=== PATIENT | male | born 1970 | race Caucasian/White ===

== ENCOUNTER 2016-11-25 17:19 | Observation (INO) ==
--- NOTE | 2016-11-25 17:40 | Emergency Department Note ---
Disposition Clinical Impression: Tachycardia Chest pain Qualifiers: Chest pain type: unspecified Qualified Code(s): R07.9 - Chest pain, unspecified Disposition: Admitted As Inpatient Condition: Fair Referrals: NONE,PCP [Non-Partnered Physician] - Forms: ED Satisfaction Letter Chest Pain HPI - General Chief Complaint: ED Chest Pain Stated Complaint: chest pain Time Seen by Provider: 11/25/16 17:22 Source: patient, EMS Limitations: no limitations Vital Signs Reviewed: Yes Nursing Notes Reviewed: Yes - History of Present Illness HPI Narrative: Presents with chest pain which is both a tightness and dull and sharp and has been intermittent for the last 3 or 4 days lasts between 2 minutes and 10 minutes at a time and it is nonexertional. He does have associated diaphoresis and dyspnea. The patient did present per EMS. He denies radiation to back does have radiation to left shoulder, left neck and jaw. He does occasionally have a pleuritic aspect but this is not present with every breath. He denies any pain or swelling of the lower extremities but does have some numbness of both feet. Social history: Smoker, no alcohol or drugs. He has used heroin in the past but not in the last 4 years. Family history: Positive for heart disease in both parents Severity scale (1-10): 6 - Related Data Home Medications Medication Instructions Recorded Confirmed Cyclobenzaprine [Flexeril] 10 mg PO TID PRN 05/25/15 06/28/16 Gabapentin [Neurontin] 800 mg PO TID 05/25/15 06/28/16 Omeprazole [PriLOSEC] 20 mg PO BIDAC 05/25/15 06/28/16 Sennosides [Senna] 8.6 mg PO QPM PRN 05/25/15 06/28/16 Naproxen Sodium [Aleve] 220 mg PO BID PRN 01/11/16 06/28/16 Previous Rx's Medication Instructions Recorded Clindamycin [Cleocin] 150 mg PO Q6HR #7 capsule 06/28/16 HYDROcodone/Acet 5/325 mg [Burley 1 tab PO Q6H PRN #20 tab 06/28/16 5-325 mg] Juan/Poly/HC *EAR* SOLN 4 drop RIGHT EAR QID 10 Days 08/04/16 [Cortisporin *EAR* SOLN] Allergies Allergy/AdvReac Type Severity Reaction Status Date / Time No Known Allergies Allergy Verified 06/28/16 07:02 Review of Systems: Constitutional: No fever Vision: No blurred vision ENT: No rhinorrhea Respiratory: No cough Allergic: No allergies : No blood in urine GI: No blood in stool Hematologic: No bruising Dermatologic: No skin rash Musculoskeletal: No pain in the extremities Neuro: Does have some numbness of both feet Chest Pain PMH - Past Medical History Medical history: Reports: GERD Surgical history: Reports: cholecystectomy Psychiatric history: Reports: no psych history - Social History Smoking Status: Current every day smoker Alcohol use: Reports: none Drug use: Reports: none Physical Exam CONSTITUTIONAL: Well-appearing; well-nourished; A&O X 3, in no apparent distress HEAD: Normocephalic; atraumatic EYES: PERRL, no scleral icterus NOSE: The nose is normal in appearance without rhinorrhea NECK: No JVD or distended neck veins RESP: Normal chest excursion with respiration; breath sounds clear and equal bilaterally; no wheezes, rhonchi, or rales CARD: Regular rhythm, without murmurs, rub or gallop ABD: Non-distended; non-tender, soft, without rigidity, rebound or guarding,no pulsatile mass CHEST: No pain with palpation SKIN: Normal for age and race; warm and dry without diaphoresis ; no apparent lesions EXTREMITIES: Pulses are 2 plus and equal times 4 extremities, no peripheral edema or calf muscle pain - General Limitations: no limitations General appearance: alert, in no apparent distress Course Vital Signs Temperature 98.9 F 11/25/16 17:20 Pulse Rate 125 11/25/16 17:20 Respiratory Rate 18 11/25/16 17:20 Blood Pressure 121/87 11/25/16 17:20 O2 Sat by Pulse Oximetry 94 11/25/16 17:20 Temperature 98.9 F 11/25/16 17:20 Pulse Rate 102 11/25/16 18:30 Respiratory Rate 18 11/25/16 18:30 Blood Pressure 131/92 11/25/16 18:30 O2 Sat by Pulse Oximetry 100 11/25/16 18:30 Oxygen Delivery Oxygen Delivery Nasal Cannula Chest Pain - MDM Narrative Medical decision making narrative: The patient is tachycardic. I did review previous records showing a knee scope was done in June. The patient's EKG shows sinus tachycardia with rate of 126 bpm and evidence of possible old inferior [place]. There are currently some nonspecific ST changes. Patient will have labs including troponin, d-dimer, other labs, IV fluid bolus, chest x-ray and will likely be admitted to the hospital. 174 I did review the patient's test results and the troponin is negative, d-dimer is negative. The patient's heart rate has significantly improved and is now 102 with IV fluids. Chest x-ray without acute abnormality. There is no radiation to the back of the risk of aortic dissection is unlikely. I did add on a urine drug tox screens. Based on the patient's age and his intermittent symptoms the troponin will not be completely reliable as the patient's total and maximal duration of pain is 10 minutes at a time the patient will be admitted to the hospital. 1850 I did speak with the patient again and he is comfortable with the admission plan. patient is being monitored. I did speak with Dr. Jones who is the hospitalist who except the patient for admission. 2012 - Medical Records Medical records reviewed: Yes I reviewed the patient's medical records. - Lab Data Lab results reviewed: Yes I reviewed the patient's lab results. Result diagrams: 11/25/16 18:12 11/25/16 18:12 Lab Results 11/25/16 11/25/16 11/25/16 Range/Units 18:12 18:12 18:12 WBC 7.3 (4.3-11.1) K/mcL RBC 5.14 (4.19-5.50) M/mcL Hgb 15.1 (12.9-16.9) g/dL Hct 44.8 (37.5-50.1) % MCV 87.2 (83.0-100.0) fL MCH 29.4 (28.0-33.3) pg MCHC 33.7 (31.6-35.5) g/dL RDW 12.0 (11.5-14.5) % Plt Count 230 (140-400) K/mcL MPV 11.1 (9.4-12.4) fL Immature Gran % 0.3 (0-4) % Seg Neutrophils % 63.6 % Lymphocytes % 26.7 % Monocytes % 7.0 % Eosinophils % 1.2 % Basophils % 1.2 % Neutrophils # 4.6 (1.6-8.9) K/mcL Lymphocytes # 2.0 (0.6-4.6) K/mcL Monocytes # 0.5 (0.0-1.3) K/mcL Eosinophils # 0.1 (0.0-0.6) K/mcL Basophils # 0.1 (0.0-0.2) K/mcL D-Dimer (0-500) ng/mLFEU Sodium 138 (136-145) mEq/L Potassium 4.2 (3.5-4.5) mEq/L Chloride 102 (98-109) mEq/L Carbon Dioxide 26 (19-29) mEq/L BUN 12 (8-26) mg/dL Creatinine 0.92 (0.72-1.25) mg/dL Est GFR ( Amer) > 60 (> 60) Est GFR (Non-Af Amer) > 60 (> 60) BUN/Creatinine Ratio 13 (6-26) Glucose 107 H (70-99) mg/dL Calculated Osmolality 286 (280-300) Calcium 9.8 (8.6-10.8) mg/dL Troponin I 0.01 (0-0.03) ng/mL 11/25/16 Range/Units 18:12 WBC (4.3-11.1) K/mcL RBC (4.19-5.50) M/mcL Hgb (12.9-16.9) g/dL Hct (37.5-50.1) % MCV (83.0-100.0) fL MCH (28.0-33.3) pg MCHC (31.6-35.5) g/dL RDW (11.5-14.5) % Plt Count (140-400) K/mcL MPV (9.4-12.4) fL Immature Gran % (0-4) % Seg Neutrophils % % Lymphocytes % % Monocytes % % Eosinophils % % Basophils % % Neutrophils # (1.6-8.9) K/mcL Lymphocytes # (0.6-4.6) K/mcL Monocytes # (0.0-1.3) K/mcL Eosinophils # (0.0-0.6) K/mcL Basophils # (0.0-0.2) K/mcL D-Dimer < 215 (0-500) ng/mLFEU Sodium (136-145) mEq/L Potassium (3.5-4.5) mEq/L Chloride (98-109) mEq/L Carbon Dioxide (19-29) mEq/L BUN (8-26) mg/dL Creatinine (0.72-1.25) mg/dL Est GFR ( Amer) (> 60) Est GFR (Non-Af Amer) (> 60) BUN/Creatinine Ratio (6-26) Glucose (70-99) mg/dL Calculated Osmolality (280-300) Calcium (8.6-10.8) mg/dL Troponin I (0-0.03) ng/mL - Radiology Data Radiology results reviewed: Yes I reviewed the patient's radiology results.
[2016-11-25] MEDS: 0.9 % Sodium Chloride 1,000 ML IVC SCH ×2 (17:51→17:52)
[2016-11-25 18:27] LABS: Basophils # 0.1 K/mcL (0.0-0.2); Basophils % 1.2 %; Eosinophils # 0.1 K/mcL (0.0-0.6); Eosinophils % 1.2 %; Hematocrit 44.8 % (37.5-50.1); Hemoglobin 15.1 g/dL (12.9-16.9); Immature Granulocytes % 0.3 % (0-4); Lymphocytes % 26.7 %; Mean Corpuscular HGB Conc 33.7 g/dL (31.6-35.5); Mean Corpuscular Hemoglobin 29.4 pg (28.0-33.3); Mean Corpuscular Volume 87.2 fL (83.0-100.0); Mean Platelet Volume 11.1 fL (9.4-12.4); Monocytes # 0.5 K/mcL (0.0-1.3); Neutrophils # 4.6 K/mcL (1.6-8.9); Platelet Count 230 K/mcL (140-400); Red Blood Count 5.14 M/mcL (4.19-5.50); Segmented Neutrophils % 63.6 %
[2016-11-25 18:39] LABS: BUN/Creatinine Ratio 13 (6-26); Blood Urea Nitrogen 12 mg/dL (8-26); Calcium 9.8 mg/dL (8.6-10.8); Carbon Dioxide 26 mEq/L (19-29); Chloride 102 mEq/L (98-109); Glucose 107 mg/dL (70-99); Osmolality,Calculated 286 (280-300); Potassium 4.2 mEq/L (3.5-4.5); Sodium 138 mEq/L (136-145); eGFR For African Americans > 60 (> 60); eGFR For Non-African Americans > 60 (> 60)
[2016-11-25] MEDS ORDERED: Naloxone 0.4 MG/ML INJ IVP PRN (22:30)
[2016-11-25] MEDS ORDERED: *HR* HYDROcodone/Acet 7.5/325 mg TABLET PO PRN (22:32)
[2016-11-25] MEDS ORDERED: Sennosides 8.6 MG TABLET PO PRN (22:32)
[2016-11-26] MEDS: 0.9 % Sodium Chloride 1,000 ML IVC SCH ×4 (00:29→00:32)
[2016-11-26] MEDS: Acetaminophen 325 MG TABLET PO PRN (01:10)
--- NOTE | 2016-11-26 05:04 | Internal Med History&Physical ---
Date of Encounter: 11/25/16 Time of Encounter: 23:00 Assessment and Plan (1) Tobacco abuse Current visit: Yes Status: Acute Smoking cessation education. Placed patient on nicotine patch (2) Numbness and tingling of both feet Current visit: Yes Status: Acute Symptoms have lasted for several weeks. Patient has history of radiculopathy S/ P back surgery. We will repeat CT L-spine in a.m. (3) Chest pain Current visit: Yes Status: Acute Etiology is undetermined. Need to rule out ACS as patient has a history of hypertension and smoking. - Place patient on continuous cardiac monitoring. - 3 sets of troponin. - Echocardiogram. - Stress test in a.m. Qualifiers: Chest pain type: precordial pain Qualified Code(s): R07.2 - Precordial pain Internal Medicine - H&P: HPI Chief complaint: Chest pain Admitted From: Home Plans for Post Hospital Care: Home History of present illness: Mr. Bowers is a 46 year old male with history of hypertension, GERD, back pain S /P back surgery present to emergency room for chest pain. Pain started at 3 PM. Located on the left chest, radiating to left shoulder and arm and neck. Pain is intermittent and lasted about 10-15 minutes, sharp and squeezing, 6-7 out of 10. Patient denies nausea, shortness of breath, or diaphoresis. Patient takes nitroglycerin but does not help. Patient also complaining both feet numbness/tingling for several weeks. Denies urinary/fecal incontinence. Past Med Surg Social Fam HX - Past Medical History Medical history: GERD Psychiatric history: no psych history - Past Surgical History Surgical History: cholecystectomy - Social History Smoking Status: Current every day smoker Smokeless Tobacco Status: No Alcohol use: none Drug use: none - Family History Father Hx Family Cardiac Disorders: Yes (DE) Internal Medicine - H&P: Meds Cyclobenzaprine [Flexeril] 10 mg PO TID PRN 05/25/15 [History] Gabapentin [Neurontin] 800 mg PO TID 05/25/15 [History] Omeprazole [PriLOSEC] 20 mg PO BIDAC 05/25/15 [History] Sennosides [Senna] 8.6 mg PO QPM PRN 05/25/15 [History] Naproxen Sodium [Aleve] 220 mg PO BID PRN 01/11/16 [History] Docusate [Colace] 100 mg PO DAILY 11/25/16 [History] HYDROcodone/Acet 7.5/325 mg [Garner 7.5-325 mg] 1 tab PO TID PRN 11/25/16 [ History] 3 Allergy/AdvReac Type Severity Reaction Status Date / Time No Known Allergies Allergy Verified 06/28/16 07:02 All Systems PM: A 10-system review of systems was performed and is negative for pertinent findings except as documented above in the HPI. - Constitutional Vitals: Temp Pulse Resp BP Pulse Ox 98.4 F 67 20 110/73 95 11/26/16 02:46 11/26/16 02:46 11/26/16 02:46 11/26/16 02:46 11/26/16 02:46 General appearance: Present: A&O X 3, no acute distress, answers questions appropriately - Head Head exam: Present: atraumatic, normocephalic - Eye Eye exam: Present: PERRL, conjuntiva pink, sclera anicteric Pupils: Present: PERRL - Neck Neck exam general surgery: Present: supple, trachea midline. Absent: lymphadenopathy - Respiratory Respiratory exam: Present: CTAB. Absent: accessory muscle use, rales, rhonchi, wheezes - Cardiovascular Cardiovascular exam: Present: RRR, +S1, +S2. Absent: diastolic murmur, gallop, rubs, systolic murmur - GI/Abdominal GI/Abdominal exam: Present: normal bowel sounds, soft, no peritoneal signs. Absent: distended, tenderness - Extremities Exam Extremities exam: Present: warm, radial pulses palpable and symmetrical. Absent : calf tenderness, cyanotic, pedal edema - Neurological Exam Neurological exam: Present: CN II-XII intact, oriented X3, no focal deficits. Absent: pronater drift, facial droop, speech deficit - Skin Skin exam: Present: dry, intact Internal Med - H&P Results - Labs CBC & Chem 7: 11/25/16 18:12 11/25/16 18:12 Labs: Cardiac Enzymes 11/25/16 Range/Units 22:42 Troponin I 0.01 (0-0.03) ng/mL - EKG Data -: EKG Interpreted by Myself EKG shows normal: sinus rhythm Rate: normal - Impressions ITS Impressions Lumbar Spine CT 11/25/16 22:35 IMPRESSION: 1. Postoperative changes at L5-S1. 2. Broad disc bulge at L2-3 with mild central canal stenosis. MRI is more sensitive for disc pathology. D/ / Jorge Shaw MD / Jorge Shaw MD Interpreting Provider: Jorge Shaw MD
[2016-11-26] MEDS ORDERED: Regadenoson 0.4 MG/5 ML SYRINGE IVP ONE (06:15)
[2016-11-26 06:30] LABS: Basophils # 0.1 K/mcL (0.0-0.2); Basophils % 1.3 %; Eosinophils # 0.3 K/mcL (0.0-0.6); Hematocrit 42.3 % (37.5-50.1); Hemoglobin 14.2 g/dL (12.9-16.9); Immature Granulocytes % 0.3 % (0-4); Lymphocytes # 2.6 K/mcL (0.6-4.6); Lymphocytes % 38.3 %; Mean Corpuscular HGB Conc 33.6 g/dL (31.6-35.5); Mean Corpuscular Hemoglobin 29.6 pg (28.0-33.3); Mean Corpuscular Volume 88.1 fL (83.0-100.0); Mean Platelet Volume 11.4 fL (9.4-12.4); Monocytes # 0.6 K/mcL (0.0-1.3); Monocytes % 8.2 %; Neutrophils # 3.3 K/mcL (1.6-8.9); Platelet Count 205 K/mcL (140-400); Red Cell Distribution Width 12.1 % (11.5-14.5); Segmented Neutrophils % 47.9 %
[2016-11-26 06:44] LABS: BUN/Creatinine Ratio 14 (6-26); Blood Urea Nitrogen 12 mg/dL (8-26); Calcium 9.4 mg/dL (8.6-10.8); Carbon Dioxide 26 mEq/L (19-29); Chloride 103 mEq/L (98-109); Glucose 111 mg/dL (70-99); Osmolality,Calculated 290 (280-300); Potassium 3.5 mEq/L (3.5-4.5); Sodium 140 mEq/L (136-145); eGFR For African Americans > 60 (> 60); eGFR For Non-African Americans > 60 (> 60)
[2016-11-26] MEDS: Nicotine 21 MG PATCH.TD24 TD SCH (12:48)
[2016-11-26] MEDS: Gabapentin 400 MG CAPSULE PO SCH ×3 (12:49→22:33)
--- NOTE | 2016-11-26 13:06 | Internal Med Progress Note ---
Date of Encounter: 11/26/16 Time of Encounter: 12:15 - Assessment and plan (1) Chest pain Current Visit: Yes Status: Acute Assessment and plan: Patient currently complains of chest pain though states it is slightly better than when he arrived. Chest x-ray negative. Echocardiogram unremarkable with ejection fraction of 60-65% and mild diastolic dysfunction. Patient is euvolemic on examination and denies shortness of breath above his norm. Stress test will be tomorrow given that he had caffeine this morning. Nothing by mouth after midnight. Home pain medication has been scheduled with breakthrough pain medication ordered at this time. Troponins negative 3, awaiting stress test tomorrow morning. ITS Impressions Chest X-Ray 11/25/16 17:30 IMPRESSION: No acute abnormality. D/ / Jorge Shaw MD / Jorge Shaw MD Interpreting Provider: Jorge Shaw MD Echocardiogram Date of Study: 11/26/2016 Indications: Chest pain Impressions: LVEF 60-65%. Normal LV chamber size, wall thickness and function. Mild left ventricular diastolic dysfunction. Normal right ventricular structure and function. No evidence of pulmonary hypertension. No significant valvular dysfunction. (2) History of spinal surgery Current Visit: Yes Status: Chronic Assessment and plan: Patient has had 2 spinal surgeries one in 2004, the other one in 2007. (3) Numbness and tingling of both feet Current Visit: Yes Status: Acute Assessment and plan: Patient stating he has been having worsening numbness and tingling in his feet for the past one to one and a half months. His spinal surgeries were many years ago. He is also having urinary hesitancy with difficulty initiating a stream. Lumbar CT revealing bulging disc at L2-L3 with mild canal stenosis. Given his new symptoms, MRI of lumbar spine has been ordered and is pending. We will consider consultation to spinal surgery if indicated. On examination, strength 5 over 5 bilaterally. Sensation to light touch is affected. Capillary refill brisk and pulses strong. ITS Impressions Lumbar Spine CT 11/25/16 22:35 IMPRESSION: 1. Postoperative changes at L5-S1. 2. Broad disc bulge at L2-3 with mild central canal stenosis. MRI is more sensitive for disc pathology. D/ / 11/26/2016 07:14:51 Jorge Shaw MD / [place] Interpreting Provider: Jorge Shaw MD (4) Urinary hesitancy Current Visit: Yes Status: Acute Assessment and plan: Has been present for the last month or so. Patient and states that he can take up to 10-15 minutes to start his stream. Lumbar spine MRI pending. Will obtain urinalysis. No prior history of BPH. (5) Chronic back pain Current Visit: Yes Status: Chronic Assessment and plan: Home pain medications continued with breakthrough pain medicine as needed (6) Tachycardia Current Visit: Yes Status: Resolved (7) Tobacco abuse Current Visit: Yes Status: Chronic Assessment and plan: Declines counseling. Nicotine patch ordered-remove prior to stress test per protocol (8) DVT prophylaxis Current Visit: Yes Status: Acute Assessment and plan: Observation patient. Up ad bj. - Subjective Interval history: Patient seen and examined. On examination, patient sitting upright in bed conversing with his and friend. Patient still complaining of chest pain to his left anterior chest radiating to his left shoulder. He denies shortness of breath above his norm. Patient is requesting that his pain medication be increased. - Constitutional Vitals: Temp Pulse Resp BP Pulse Ox 97.8 F 72 16 107/70 97 11/26/16 11:36 11/26/16 11:36 11/26/16 11:36 11/26/16 11:36 11/26/16 11:36 General appearance: Present: A&O X 3, no acute distress, answers questions appropriately - Head Head exam: Present: atraumatic, normocephalic - Eye Eye exam: Present: PERRL, conjuntiva pink, sclera anicteric Pupils: Present: PERRL - Neck Neck exam general surgery: Present: supple, trachea midline. Absent: lymphadenopathy - Respiratory Respiratory exam: Present: decreased breath sounds. Absent: accessory muscle use, rales, respiratory distress, rhonchi, wheezes - Cardiovascular Cardiovascular exam: Present: RRR, +S1, +S2. Absent: diastolic murmur, gallop, rubs, systolic murmur - GI/Abdominal GI/Abdominal exam: Present: normal bowel sounds, soft, no peritoneal signs. Absent: distended, tenderness - Extremities Exam Extremities exam: Present: warm, radial pulses palpable and symmetrical. Absent : calf tenderness, cyanotic, pedal edema - Expanded Lower Extremities Exam Lower Leg exam: Present: normal inspection Ankle exam: Present: normal inspection Foot/Toe exam: Present: normal inspection Neuro vascular tendon exam: Present: decreased fine/light touch, no vascular compromise. Absent: abnormal cap refill, extremity cold to touch, pallor, pulse deficit - Neurological Exam Neurological exam: Present: alert, CN II-XII intact, normal gait, oriented X3, no focal deficits, strengths equal and symetr throughout. Absent: pronater drift, facial droop, speech deficit - Skin Skin exam: Present: dry, intact, normal color, warm Internal Medicine: Result - Labs CBC & Chem 7: 11/26/16 05:51 11/26/16 05:51 Labs: Short CBC 11/26/16 Range/Units 05:51 WBC 6.8 (4.3-11.1) K/mcL Hgb 14.2 (12.9-16.9) g/dL Hct 42.3 (37.5-50.1) % Plt Count 205 (140-400) K/mcL Neutrophils # 3.3 (1.6-8.9) K/mcL BMP 11/26/16 05:51 Sodium 140 Potassium 3.5 Chloride 103 Carbon Dioxide 26 BUN 12 Creatinine 0.83 Glucose 111 H Calcium 9.4 Cardiac Enzymes 11/25/16 11/26/16 Range/Units 22:42 05:51 Troponin I 0.01 0.00 (0-0.03) ng/mL - ABG Interpretation ABG results: PT/INR, D-dimer D-Dimer < 215 ng/mLFEU (0-500) 11/25/16 18:12 - Impressions Impressions Lumbar Spine CT 11/25/16 22:35 IMPRESSION: 1. Postoperative changes at L5-S1. 2. Broad disc bulge at L2-3 with mild central canal stenosis. MRI is more sensitive for disc pathology. D/ / 11/26/2016 07:14:51 Jorge Shaw MD / [place] Interpreting Provider: Jorge Shaw MD Consult Discharge Plan - Plan Referrals: Tye Loving, PAC [Primary Care Provider] -
[2016-11-26] MEDS: *HR* HYDROcodone/Acet 7.5/325 mg TABLET PO SCH ×2 (14:09→22:33)
[2016-11-26] MEDS: *HR* OxyCODONE Immed Rel 5 MG TABLET PO PRN (16:03)
[2016-11-26] MEDS ORDERED: *HR* LORazepam 2 MG/ML VIAL IVP ONE (18:34)
[2016-11-26] MEDS ORDERED: *HR* LORazepam 2 MG/ML VIAL ONE (18:40)
[2016-11-27] MEDS: Acetaminophen 325 MG TABLET PO PRN (04:02)
[2016-11-27] MEDS: *HR* OxyCODONE Immed Rel 5 MG TABLET PO PRN ×2 (05:51→13:29)
[2016-11-27] MEDS ORDERED: Regadenoson 0.4 MG/5 ML SYRINGE IVP ONE (06:18)
[2016-11-27] MEDS: Nicotine 21 MG PATCH.TD24 TD SCH (10:31)
[2016-11-27] MEDS: Gabapentin 400 MG CAPSULE PO SCH ×3 (10:31→21:51)
[2016-11-27] MEDS: *HR* HYDROcodone/Acet 7.5/325 mg TABLET PO SCH ×3 (10:31→21:51)
[2016-11-27] MEDS ORDERED: Mag Hydrox/Al Hydrox/Simeth 30 ML UDC PO ONE (10:45)
--- NOTE | 2016-11-27 11:38 | Nuclear Medicine Stress Report ---
Regadenoson Nuclear 2 day Name: Ildefonso Bowers Date of Study: 11/26/2016 Date: 1970 Ht: 67.0 in Medical Record#: [id number] Age: 46 Wt: 185.0 lb Gender: Male Order #: [id number] Location: [facility] Room: [facility] Supervising Provider: Alexandria Mclaughlin CNP Reading Physician: Yanick Veras DO, FACC, FASNC Ordering Physician: Sarah Silva CNP Primary Care Physician: PREETI Seals Stress Technologist: Alejandra Martinez, JENNIFER Weight Training Instructor: Pj Trent Indications: Chest Pain Impression: Pharmacologic stress ECG is negative for ischemia at level of heart rate achieved. Gated EF = 66%. Perfusion imaging was negative for ischemia or infarct. History: History of Smoking Stress Test Summary: Stress Test Type: Pharmacologic Regadenoson 0.4mg/5ml given IV Baseline Information: Initial Heart Rate: 90 Blood Pressure: 114/74 Stress Information: Test Terminated Due to (primary): As per protocol Maximum Blood Pressure: 110/68 Maximum Heart Rate: 138 Percent Maximum Heart Rate Achieved: 79 Double Product: [id number] METS Reached: 1 Symptoms: Nausea Nuclear Summary: SPECT myocardial perfusion imaging using Tc99m Sestamibi given intravenously was performed at rest and following cardiac stress testing. The resting images were obtained following initial dose of 9.8 mCi. Following stress an additional dose of 35.8 mCi was given at peak exercise or 30 seconds post regadenoson infusion. Medication Given: Time Medication Dose Units Route Findings: Stress Note * Resting ECG demonstrated normal sinus rhythm. * No baseline arrhythmias were noted. * Pharmacologic stress ECG is negative for ischemia at level of heart rate achieved. * No arrhythmias were noted during stress. * Patient had no chest pain during stress. * Normal hemodynamic responses to pharmacologic stress. Study Quality * Study quality is good. Gated EF % * Gated EF = 66%. Left Ventricle * The left ventricle is not dilated. LVEDV = 89 mL. NORMALS * Normal wall motion. * Normal Segmental Perfusion in rest. * Normal segmental perfusion in stress. TID * No evidence of transient ischemic dilatation. TID ratio * TID ratio = 1.33. Lung Uptake * There is no evidence of increase lung uptake. Updated by Yanick Veras DO, FACC, FASSandro, FASCALLUM on 11/27/2016 11:29:50 AM electronically signed on 11/27/2016 11:31:08 AM with status of Final
--- NOTE | 2016-11-27 14:32 | Electrocardiograph Report ---
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
[2016-11-27] MEDS ORDERED: Mag Hydrox/Al Hydrox/Simeth 30 ML UDC PO PRN (17:57)
--- NOTE | 2016-11-27 18:51 | Internal Med Progress Note ---
Date of Encounter: 11/27/16 Time of Encounter: 17:30 - Assessment and plan (1) Dizziness Current Visit: Yes Status: Acute Assessment and plan: Patient's main complaint is that his dizziness that he states has been present intermittently for the past week is much worse today. His fiancee states that he has to hold onto the table even while sitting because he has severe bouts of dizziness. Patient stating he can "barely walk" and stated that his fiancee had to help him to get to the bathroom. Patient stating he feels as if he is off balance, he denies sensation of room spinning. 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 Examination appears legitimate and was consistent on several separate examinations. We will perform brain MRI to rule out CVA. No facial asymmetry or slurred speech noted. Will await results of MRI. Possible OT/PT consultations pending clinical outcomes. Possible neurological consult as well. (2) Chest pain Current Visit: Yes Status: Acute Assessment and plan: Patient now denies chest pain and is mainly complaining of dizziness and weakness. Chest x-ray negative. Echocardiogram unremarkable with ejection fraction of 60-65% and mild diastolic dysfunction. Patient is euvolemic on examination and denies shortness of breath above his norm. Troponins negative 3. Stress test negative; ACS ruled out. ITS Impressions Chest X-Ray 11/25/16 17:30 IMPRESSION: No acute abnormality. D/ / Jorge Shaw MD / Jorge Shaw MD Interpreting Provider: Jorge Shaw MD Echocardiogram Date of Study: 11/26/2016 Indications: Chest pain Impressions: LVEF 60-65%. Normal LV chamber size, wall thickness and function. Mild left ventricular diastolic dysfunction. Normal right ventricular structure and function. No evidence of pulmonary hypertension. No significant valvular dysfunction. Regadenoson Nuclear 2 day Date of Study: 11/26/2016 Impression: Pharmacologic stress ECG is negative for ischemia at level of heart rate achieved. Gated EF = 66%. Perfusion imaging was negative for ischemia or infarct. (3) History of spinal surgery Current Visit: Yes Status: Chronic Assessment and plan: Patient has had 2 spinal surgeries one in 2004, the other one in 2007. (4) Numbness and tingling of both feet Current Visit: Yes Status: Acute Assessment and plan: Patient stating he has been having worsening numbness and tingling in his feet for the past one to one and a half months. His spinal surgeries were many years ago. He is also having urinary hesitancy with difficulty initiating a stream. Lumbar CT revealing bulging disc at L2-L3 with mild canal stenosis. Given his new symptoms, MRI of lumbar spine was performed which was congruent with the CT. I spoke to spinal surgeon Dr Mott who surmised that the patient 's symptoms were not related to his back and he cleared him for outpatient follow-up with no further investigation warranted inpatient. Also recommended possible neurological consultation with EMG testing outpatient. ITS Impressions Lumbar Spine CT 11/25/16 22:35 IMPRESSION: 1. Postoperative changes at L5-S1. 2. Broad disc bulge at L2-3 with mild central canal stenosis. MRI is more sensitive for disc pathology. D/ / 11/26/2016 07:14:51 Jorge Shaw MD / [facility] Interpreting Provider: Jorge Shaw MD (5) Urinary hesitancy Current Visit: Yes Status: Acute Assessment and plan: Has been present for the last month or so. Patient and states that he can take up to 10-15 minutes to start his stream. Lumbar spine MRI unremarkable. Will obtain urinalysis-still pending. No prior history of BPH. (6) Chronic back pain Current Visit: Yes Status: Chronic Assessment and plan: Home pain medications continued with breakthrough pain medicine as needed. Of note, patient has requested that his pain medication be increased however his breakthrough pain medication is sufficient for his chronic pain management. No IV pain medication is to be given at this time. (7) Tachycardia Current Visit: Yes Status: Resolved (8) Tobacco abuse Current Visit: Yes Status: Chronic Assessment and plan: Declines counseling. Nicotine patch ordered (9) DVT prophylaxis Current Visit: Yes Status: Acute Assessment and plan: Observation patient. Up ad bj. - Subjective Interval history: Patient seen and examined. On examination, patient sitting upright in bed watching television. Patient is very concerned because he states that he feels very weak and states that he can barely walk because he feels extremely dizzy. He states that his fiancee had to help him go to the bathroom because he was very unsteady on his feet. He and his fiancee are very concerned about his dizziness and weakness. Patient now longer complains of chest pain and states he is eating well. - Constitutional Vitals: Temp Pulse Resp BP Pulse Ox 98.3 F 88 16 121/80 95 11/27/16 18:42 11/27/16 18:42 11/27/16 18:42 11/27/16 18:42 11/27/16 18:42 General appearance: Present: A&O X 3, pleasant, no acute distress, answers questions appropriately - Head Head exam: Present: atraumatic, normocephalic - Eye Eye exam: Present: PERRL, conjuntiva pink, sclera anicteric Pupils: Present: PERRL - Neck Neck exam general surgery: Present: supple, trachea midline. Absent: lymphadenopathy - Respiratory Respiratory exam: Present: decreased breath sounds. Absent: accessory muscle use, rales, respiratory distress, rhonchi, wheezes - Cardiovascular Cardiovascular exam: Present: RRR, +S1, +S2. Absent: diastolic murmur, gallop, rubs, systolic murmur - GI/Abdominal GI/Abdominal exam: Present: normal bowel sounds, soft, no peritoneal signs. Absent: distended, tenderness - Extremities Exam Extremities exam: Present: warm, radial pulses palpable and symmetrical. Absent : calf tenderness, cyanotic, pedal edema - Neurological Exam Neurological exam: Present: alert, CN II-XII intact, oriented X3, no focal deficits. Absent: normal gait, strengths equal and symetr throughout, pronater drift, facial droop, speech deficit - Expanded Neurological Exam Neurological exam expanded: Present: protecting the airway Patient oriented to: Present: person, place, time Speech: Present: fluid speech Cranial Nerves: EOM's intact PM: Normal, gag reflex PM: Normal Neuro motor strength exam: LUE: 4, RUE: 5, LLE: 4, RLE: 5 Coma Scale Eye Opening: Spontaneous Coma Scale Motor Response: Obeys Commands Coma Scale Verbal Response: Oriented Coma Scale Total: 15 - Skin Skin exam: Present: dry, intact, pallor, warm Internal Medicine: Result - Labs CBC & Chem 7: 11/26/16 05:51 11/26/16 05:51 - ABG Interpretation ABG results: PT/INR, D-dimer D-Dimer < 215 ng/mLFEU (0-500) 11/25/16 18:12 - Impressions Impressions Lumbar Spine MRI 11/26/16 08:15 IMPRESSION: Postsurgical changes from L5-S1 discectomy and posterior fixation. Extensive artifact related to presence of spinal hardware degrades evaluation of the L4-L5 and L5-S1 levels. Disc bulge and right central disc protrusion at L2-L3 contributes to mild spinal canal stenosis. Multilevel neural foraminal narrowing, including moderate bilateral neural foraminal stenosis at L3-L4. D/ / 11/26/2016 21:38:02 Cheri Noguera MD / [facility] Interpreting Provider: Cheri Noguera MD Consult Discharge Plan - Plan Instructions: Chest Pain (DC), Cigarette Smoking and Your Health (GEN) Referrals: Tye Loving, PAC [Primary Care Provider] - 12/11/16 10:40 am
[2016-11-27] MEDS ORDERED: *HR* LORazepam 2 MG/ML VIAL IVP ONE (18:58)
[2016-11-28 05:08] LABS: Hemoglobin A1C 5.4 %
[2016-11-28 05:48] LABS: Folate 3.4 ng/mL (7.0-31.4)
[2016-11-28 06:53] VITALS: BP 116/71
[2016-11-28] MEDS: Gabapentin 400 MG CAPSULE PO SCH (09:02)
[2016-11-28] MEDS: Nicotine 21 MG PATCH.TD24 TD SCH (09:02)
[2016-11-28] MEDS: *HR* HYDROcodone/Acet 7.5/325 mg TABLET PO SCH ×2 (09:09→10:24)
--- NOTE | 2016-11-28 13:48 | Discharge Summary ---
Date of Encounter: 11/28/16 Time of Encounter: 10:30 - Discharge Diagnosis (1) Dizziness Priority: Primary Status: Ruled-out Comments: MRI negative. (2) Chest pain Priority: Primary Status: Ruled-out Comments: ACS ruled out. (3) History of spinal surgery Priority: Secondary Status: Chronic Comments: Patient has had 2 spinal surgeries one in 2004, the other one in 2007. L5-S1 discectomy and posterior fixation. Spoke to spinal surgeon Dr. Mott who cleared him for outpatient follow-up with spine clinic. (4) Numbness and tingling of both feet Priority: Primary Status: Acute Comments: Outpatient neurology follow-up with EMGs. Patient stating he has had EMGs in the past that were normal (5) Urinary hesitancy Priority: Primary Status: Acute Comments: Acute on chronic. No dysuria. Follow-up outpatient. Voided regularly while admitted. (6) Chronic back pain Priority: Secondary Status: Chronic Comments: Home pain medications were continued during this visit, follow-up outpatient (7) Tachycardia Priority: Primary Status: Resolved (8) Tobacco abuse Priority: Secondary Status: Chronic Comments: Declined counseling (9) DVT prophylaxis Priority: Primary Status: Acute Comments: Observation patient. Up ad bj. - Discharge Medications Home Medications: Cyclobenzaprine [Flexeril] 10 mg PO TID PRN 05/25/15 [History] Gabapentin [Neurontin] 800 mg PO TID 05/25/15 [History] Omeprazole [PriLOSEC] 20 mg PO BIDAC 05/25/15 [History] Sennosides [Senna] 8.6 mg PO QPM PRN 05/25/15 [History] Docusate [Colace] 100 mg PO DAILY 11/25/16 [History] HYDROcodone/Acet 7.5/325 mg [Alvarado 7.5-325 mg] 1 tab PO TID PRN 11/25/16 [ History] Allergies/Adverse Reactions: 3 Allergy/AdvReac Type Severity Reaction Status Date / Time No Known Allergies Allergy Verified 06/28/16 07:02 Procedures/tests Complete & Pending: Procedures Performed prior 72 hours Category Date Time Status CT lumbar spine wo con [CT] Routine Cat Scan 11/25/16 22:35 Completed NM chris perf SPECT multi [NM] Routine Exams 11/25/16 22:34 Taken MR head/brain wo con [MR] Stat MRI 11/27/16 18:57 Completed MR lumbar spine wo con [MR] Routine MRI 11/26/16 08:15 Draft EV echocardiogram Routine Y 11/26/16 22:34 Completed SP pharm nuclear stress Routine Y 11/27/16 07:10 Completed Date of admission: 11/25/16 20:13 Primary care physician: Tye Loving Consults: 11/27/16 08:39 Consult to Physician [CONS] Routine Consulting Provider: Olegario Mott Jr Reason for Consult: hx of L5-S1 discectomy and posterior fixation in 2004 and 2007. Within past month, started with bilateral feet numbness and urinary hesitancy. MRI with mild canal stenosis- please eval and advise, thanks Time Notified: 08:40 Call Completed: Yes Discharging clinician: Sarah Silva Anticipated date of discharge: 11/28/16 - Patient Status Disposition: Home, Self-Care Condition: Fair Functional capacity at discharge: independent ambulation Overall status at discharge: patient is progressing back to baseline - Discharge Instructions Instructions: Chest Pain (DC), Cigarette Smoking and Your Health (GEN) Follow Up With: Tye Loving, PAC [Primary Care Provider] - 12/11/16 10:40 am Neurology [facility] [Provider Group] [facility] [Provider Group] Additional Instructions: Follow-up with primary care provider as scheduled. Follow-up with neurology for EMG studies, follow-up spinal clinic as well. - Diet and Activity Activity: increase activity as tolerated Diet: low salt diet Hospital course: Mr. Bowers is a 46 year old male with past medical history of hypertension, GERD , status post back surgery with chronic back pain, tobacco abuse, history of cholecystectomy. Patient presented to the emergency department with a chief complaint of chest pain that started on the day of presentation. Located on the left side of his chest and radiated to his left shoulder, left arm, and left side of his neck. Pain was intermittent and lasted approximately 10-15 minutes described as sharp and squeezing. Patient denied nausea, shortness of breath, diaphoresis. Patient stating he took nitroglycerin without help. Patient also endorsed both feet with numbness and tingling that had been present for at least several weeks. He denied any urinary or fecal incontinence. Workup in emergency department unremarkable. Chest x-ray negative. Patient was admitted to the hospitalist service for further evaluation and management. Lumbar spine revealing possible canal stenosis MRI of spine was obtained. Of note, patient stating that he had bilateral feet numbness and tingling on for several weeks that he stated he had outpatient EMG studies years ago that were normal. He also endorsed urinary has not seen with difficulty initiating a stream for the past couple weeks. Given that the patient has a history of 2 prior back surgeries in 2004 and 2007 with L5-S1 discectomy and posterior fixation, spinal surgeon Dr. Mott was brought on board. MRI of lumbar spine congruent findings on the CT scan revealed mild central canal stenosis. Dr. Mott surmised that the patient's symptoms of the feet numbness and urinary hesitancy were not related to his back issues and cleared him for outpatient follow-up with the spinal clinic. Regarding his chest pain, echocardiogram unremarkable with ejection fraction of 60-65% and mild diastolic dysfunction. Patient was euvolemic on examination and denied shortness of breath above his norm. Troponins negative 3. Stress test negative and ACS was ruled out. When the patient was informed that acute coronary etiologies were ruled out, he began to experience left-sided weakness and difficulty walking. Concern for possible CVA soon MRI was obtained which was unremarkable. Of note, throughout this admission, patient's regular home medications were continued and breakthrough pain medication was ordered. Patient was noted to be continually asking for more pain medication. Patient was almost upset when he was informed that he did not have a stroke or heart attack or acute processes. When he was told he did not have a stroke, patient' s left-sided weakness immediately resolved and OT and PT consultations were not indicated. I had a very lengthy discussion with him and his fiancee. Patient began to cry stating that he has had multiple deaths of people that are related to him and people that are close to him over the past 6-8 months including brother, [place], dad, grandfather, [id number], some close friends. He also had relationship issues with another girlfriend and after they broke up, his current fiancee states that he "went crazy". She states that they are now living together and over the past 6 weeks, patient has become increasingly more paranoid. He had been staring at pictures of his ex-girlfriend and looking for shadows in the background to see who she was cheating on him with. He is also very scared that his current fiancee will cheer on him so he makes her go to work with him so that she knows where she is at. He also sees things on [place] and other locations where he is able to see writing on these tim[place] that is not present. Patient's issues are all congruent with psychological issues. Physical/metabolic etiologies have been ruled out and given that the patient's chief complaint changed 3 times during this admission leads to more of a mental health issue. He was instructed to follow up with his primary care provider and obtain a referral for psychiatry follow-up. Patient denied suicidal or homicidal ideations. He was discharged home in stable condition with close outpatient follow-up recommended. ITS Impressions Chest X-Ray 11/25/16 17:30 IMPRESSION: No acute abnormality. D/ / Jorge Shaw MD / Jorge Shaw MD Interpreting Provider: Jorge Shaw MD Lumbar Spine CT 11/25/16 22:35 IMPRESSION: 1. Postoperative changes at L5-S1. 2. Broad disc bulge at L2-3 with mild central canal stenosis. MRI is more sensitive for disc pathology. D/ / 11/26/2016 07:14:51 Jorge Shaw MD / [facility] Interpreting Provider: Jorge Shaw MD Lumbar Spine MRI 11/26/16 08:15 IMPRESSION: Postsurgical changes from L5-S1 discectomy and posterior fixation. Extensive artifact related to presence of spinal hardware degrades evaluation of the L4-L5 and L5-S1 levels. Disc bulge and right central disc protrusion at L2-L3 contributes to mild spinal canal stenosis. Multilevel neural foraminal narrowing, including moderate bilateral neural foraminal stenosis at L3-L4. D/ / 11/26/2016 21:38:02 [facility] Inter[facility] Provider: Cheri Noguera MD Brain MRI 11/27/16 18:57 IMPRESSION: No acute intracranial abnormality. Minimal chronic microvascular disease. D/ / Deric De La Rosa MD / Deric De La Rosa MD Interpreting Provider: Deric De La Rosa MD Echocardiogram Date of Study: 11/26/2016 Indications: Chest pain Impressions: LVEF 60-65%. Normal LV chamber size, wall thickness and function. Mild left ventricular diastolic dysfunction. Normal right ventricular structure and function. No evidence of pulmonary hypertension. No significant valvular dysfunction. Regadenoson Nuclear 2 day Date of Study: 11/26/2016 Impression: Pharmacologic stress ECG is negative for ischemia at level of heart rate achieved. Gated EF = 66%. Perfusion imaging was negative for ischemia or infarct. - Time Spent with Patient Total time spent providing and/or coordinating discharge services: - Constitutional Vitals: Temp Pulse Resp BP Pulse Ox 98.4 F 70 16 116/71 96 11/28/16 06:52 11/28/16 06:52 11/28/16 06:52 11/28/16 06:52 11/28/16 06:52 General appearance: Present: A&O X 3, pleasant, no acute distress, answers questions appropriately - Head Head exam: Present: atraumatic, normocephalic - Eye Eye exam: Present: PERRL, conjuntiva pink, sclera anicteric Pupils: Present: PERRL - Neck Neck exam general surgery: Present: supple, trachea midline. Absent: lymphadenopathy - Respiratory Respiratory exam: Present: decreased breath sounds. Absent: accessory muscle use, rales, respiratory distress, rhonchi, wheezes - Cardiovascular Cardiovascular exam: Present: RRR, +S1, +S2. Absent: diastolic murmur, gallop, rubs, systolic murmur - GI/Abdominal GI/Abdominal exam: Present: normal bowel sounds, soft, no peritoneal signs. Absent: distended, tenderness - Extremities Exam Extremities exam: Present: warm, radial pulses palpable and symmetrical. Absent : calf tenderness, cyanotic, pedal edema - Neurological Exam Neurological exam: Present: alert, CN II-XII intact, normal gait, oriented X3, no focal deficits, strengths equal and symetr throughout. Absent: pronater drift, facial droop, speech deficit - Psychiatric Psychiatric exam: Present: anxious, flat affect. Absent: homicidal ideation, suicidal ideation - Expanded Psychiatric Exam Focused psych exam: Present: delusional, paranoid, perseverating, restlessness - Skin Skin exam: Present: dry, intact, normal color, warm
== END 2016-11-28 14:40 | disposition home or self-care (01) ==
LOC: EMEROO 17:19 → 3BNU 17:19 → SUATTDRO 20:13 → 3BNU 21:19
PROVIDERS: ADMIT Internal Medicine; ATTEND Nurse Practitioner Family

== ENCOUNTER 2016-11-28 17:31 | Observation (INO) ==
--- NOTE | 2016-11-28 17:55 | Emergency Department Note ---
Disposition Clinical Impression: Paranoia Disposition: Admitted As Inpatient Condition: Good Forms: ED Satisfaction Letter Psych HPI - General Chief Complaint: ED Psychiatric Symptoms Stated Complaint: 1A eval Time Seen by Provider: 11/28/16 17:43 Source: patient Mode of arrival: private vehicle Limitations: no limitations Nursing Notes Reviewed: Yes Vital Signs Reviewed: Yes - History of Present Illness HPI Narrative: 46-year-old male presents to the ER due to paranoia and delusions. Patient is accompanied by his girlfriend. She states that over the last 2 weeks that he has seemed to become more paranoid and delusional. She reports in the last year they have lost several members of their families. She states that he believes that the varicose veins on her leg are from her boyfriends writing on her leg. He also reports having delusions but is unable to explain exactly what that means. He denies suicidal or homicidal ideation. He denies auditory hallucinations. He denies alcohol or drug use. Patient was hospitalized and discharged today after concern for chest pain and strokelike symptoms which were both worked up and found to be negative. No other complaints. Pt complaint: medical clearance request, other (Paranoia) Onset (ago): week(s) Duration: constant History of similar episodes: Yes Improves with: none Worsens with: none Alleged intoxication: No Associated Psychiatric Symptoms: delusions Associated symptoms: Reports: denies other symptoms Traumatic symptoms: denies traumatic injury Treatments prior to arrival: none - Related Data Home Medications Medication Instructions Recorded Confirmed Cyclobenzaprine [Flexeril] 10 mg PO TID PRN 05/25/15 11/25/16 Gabapentin [Neurontin] 800 mg PO TID 05/25/15 11/25/16 Omeprazole [PriLOSEC] 20 mg PO BIDAC 05/25/15 11/25/16 Sennosides [Senna] 8.6 mg PO QPM PRN 05/25/15 11/25/16 Docusate [Colace] 100 mg PO DAILY 11/25/16 11/25/16 HYDROcodone/Acet 7.5/325 mg [[place] 1 tab PO TID PRN 11/25/16 11/25/16 7.5-325 mg] Allergies Allergy/AdvReac Type Severity Reaction Status Date / Time No Known Allergies Allergy Verified 09/07/17 17:48 All systems ED: reviewed and negative except as stated. Cardiovascular: Denies: chest pain Respiratory: Denies: dyspnea Gastrointestinal: Denies: abdominal pain Neurological: Reports: numbness. Denies: headache, paresthesias Psychiatric: Reports: other (Paranoia, delusions). Denies: anxiety, depression , suicidal thoughts, homicidal thoughts, auditory hallucinations, visual hallucinations Past Medical History - Past Medical History Attestation: Yes The following information was validated with the patient. Source: patient Medical history: Reports: GERD Surgical history: Reports: cholecystectomy Psychiatric history: Reports: anxiety - Social History Smoking Status: Current every day smoker Smokeless Tobacco Status: No Alcohol use: Reports: none Drug use: Reports: none Physical Exam - General Limitations: no limitations General appearance: alert, in no apparent distress - Head Head exam: atraumatic, normocephalic, normal inspection - Eye Eye exam: Present: normal appearance, EOMI - ENT ENT exam: normal exam - Neck Neck exam: Present: normal inspection, full ROM - Chest Chest inspection: Present: normal inspection, symmetric chest wall rise - Respiratory Respiratory exam: Present: normal lung sounds bilaterally - Cardiovascular Cardiovascular exam: Present: normal rhythm, tachycardia, normal heart sounds - Abdominal Exam Abdominal exam: Present: soft, Non-Tender. Absent: tenderness - Extremities Exam Extremities exam: Present: normal inspection, full ROM - Expanded Upper Extremity Exam Shoulder exam: Present: normal inspection, full ROM Arm exam: Present: normal inspection, full ROM Elbow exam: Present: normal inspection, full ROM Forearm/Wrist exam: Present: normal inspection, full ROM Hand exam: Present: normal inspection, full ROM Vascular exam: Normal: radial pulse - Expanded Lower Extremity Exam Hip/Pelvis exam: Present: normal inspection, full ROM Upper leg exam: Present: normal inspection, full ROM Knee exam: Present: normal inspection, full ROM Lower leg exam: Present: normal inspection, full ROM Ankle exam: Present: normal inspection, full ROM Foot/toe exam: Present: normal inspection, full ROM Neurovascular/Tendon exam: Absent: motor deficit, tendon deficit - Neurological Exam Neurological exam: Present: alert, other (GCS 15. Nonfocal neurologic exam. Moves all extremities equally.) - Psychiatric Psychiatric exam: Present: flat affect - Expanded Psychiatric Exam Expanded psych exam: Present: poor eye contact - Skin Skin exam: Present: warm, dry, intact, normal color Course Course Narrative: Patient seen and examined. [place] slip was signed at time of arrival. We will get medical clearance labs for psychiatric evaluation. - Reevaluation(s) Reevaluation #1: Patient evaluated by psychiatric service. He is accepted for inpatient management. Vital Signs Temperature 98.1 F 11/28/16 17:42 Pulse Rate 118 11/28/16 17:42 Respiratory Rate 16 11/28/16 17:42 Blood Pressure 168/113 11/28/16 17:42 O2 Sat by Pulse Oximetry 96 11/28/16 17:42 Temperature 98.1 F 11/28/16 17:42 Pulse Rate 118 11/28/16 17:42 Respiratory Rate 16 11/28/16 17:42 Blood Pressure 168/113 11/28/16 17:42 O2 Sat by Pulse Oximetry 96 11/28/16 17:42 Oxygen Delivery Oxygen Delivery Room Air Psych - MDM Narrative Medical decision making narrative: 46-year-old male presents to the ER due to concerns for paranoia and delusions. Patient was medically cleared and evaluated by the psychiatric team here. He is accepted for inpatient management. - Lab Data Lab results reviewed: Yes I reviewed the patient's lab results. Result diagrams: 11/28/16 18:22 11/28/16 18:22 Lab Results 11/28/16 11/28/16 11/28/16 Range/Units 17:57 17:57 18:22 WBC 9.7 (4.3-11.1) K/mcL RBC 4.92 (4.19-5.50) M/mcL Hgb 14.8 (12.9-16.9) g/dL Hct 42.7 (37.5-50.1) % MCV 86.8 (83.0-100.0) fL MCH 30.1 (28.0-33.3) pg MCHC 34.7 (31.6-35.5) g/dL RDW 11.8 (11.5-14.5) % Plt Count 190 (140-400) K/mcL MPV 11.2 (9.4-12.4) fL Immature Gran % 0.2 (0-4) % Seg Neutrophils % 71.6 % Lymphocytes % 21.5 % Monocytes % 4.5 % Eosinophils % 1.3 % Basophils % 0.9 % Neutrophils # 6.9 (1.6-8.9) K/mcL Lymphocytes # 2.1 (0.6-4.6) K/mcL Monocytes # 0.4 (0.0-1.3) K/mcL Eosinophils # 0.1 (0.0-0.6) K/mcL Basophils # 0.1 (0.0-0.2) K/mcL Sodium (136-145) mEq/L Potassium (3.5-4.5) mEq/L Chloride (98-109) mEq/L Carbon Dioxide (19-29) mEq/L BUN (8-26) mg/dL Creatinine (0.72-1.25) mg/dL Est GFR ( Amer) (> 60) Est GFR (Non-Af Amer) (> 60) BUN/Creatinine Ratio (6-26) Glucose (70-99) mg/dL Calculated Osmolality (280-300) Calcium (8.6-10.8) mg/dL TSH (0.350-4.840) mcIU/mL Urine Color Yellow (Yellow) Urine Clarity Clear (Clear) Urine pH 7.0 (5.0-8.0) pH Units Ur Specific [place] 1.010 (1.010-1.025) Urine Protein Negative (Neg-Trace) mg/dL Urine Glucose (UA) Normal (Normal) mg/dL Urine Ketones Negative (Negative) mg/dL Urine Blood Negative (Negative) Urine Nitrite Negative (Negative) Urine Bilirubin Negative (Negative) Urine Urobilinogen Normal (Normal) mg/dL Ur Leukocyte Esterase Negative (Negative) Salicylates (15-30) mg/dL Urine Opiates Screen Positive H (Nayogi=825) ng/mL Acetaminophen (10-30) mcg/mL Ur Barbiturates Screen Negative (Bqynxn=387) ng/mL Ur Phencyclidine Scrn Negative (Cutoff=25) ng/mL Ur Amphetamines Screen Negative (Jlmeyq=9224) ng/mL U Benzodiazepines Scrn Negative (Nmktqr=465) ng/mL Urine Cocaine Screen Negative (Cutoff= 300) ng/mL U Marijuana (THC) Screen Negative (Cutoff = 50) ng/mL Ethyl Alcohol (0-10) mg/dL 11/28/16 Range/Units 18:22 WBC (4.3-11.1) K/mcL RBC (4.19-5.50) M/mcL Hgb (12.9-16.9) g/dL Hct (37.5-50.1) % MCV (83.0-100.0) fL MCH (28.0-33.3) pg MCHC (31.6-35.5) g/dL RDW (11.5-14.5) % Plt Count (140-400) K/mcL MPV (9.4-12.4) fL Immature Gran % (0-4) % Seg Neutrophils % % Lymphocytes % % Monocytes % % Eosinophils % % Basophils % % Neutrophils # (1.6-8.9) K/mcL Lymphocytes # (0.6-4.6) K/mcL Monocytes # (0.0-1.3) K/mcL Eosinophils # (0.0-0.6) K/mcL Basophils # (0.0-0.2) K/mcL Sodium 139 (136-145) mEq/L Potassium 3.9 (3.5-4.5) mEq/L Chloride 103 (98-109) mEq/L Carbon Dioxide 24 (19-29) mEq/L BUN 14 (8-26) mg/dL Creatinine 0.94 (0.72-1.25) mg/dL Est GFR ( Amer) > 60 (> 60) Est GFR (Non-Af Amer) > 60 (> 60) BUN/Creatinine Ratio 15 (6-26) Glucose 108 H (70-99) mg/dL Calculated Osmolality 289 (280-300) Calcium 10.1 (8.6-10.8) mg/dL TSH 0.733 (0.350-4.840) mcIU/mL Urine Color (Yellow) Urine Clarity (Clear) Urine pH (5.0-8.0) pH Units Ur Specific [place] (1.010-1.025) Urine Protein (Neg-Trace) mg/dL Urine Glucose (UA) (Normal) mg/dL Urine Ketones (Negative) mg/dL Urine Blood (Negative) Urine Nitrite (Negative) Urine Bilirubin (Negative) Urine Urobilinogen (Normal) mg/dL Ur Leukocyte Esterase (Negative) Salicylates < 5.0 L (15-30) mg/dL Urine Opiates Screen (Zcmpyn=355) ng/mL Acetaminophen 1.0 L (10-30) mcg/mL Ur Barbiturates Screen (Mnfcoh=750) ng/mL Ur Phencyclidine Scrn (Cutoff=25) ng/mL Ur Amphetamines Screen (Ielyli=7469) ng/mL U Benzodiazepines Scrn (Qvvtae=690) ng/mL Urine Cocaine Screen (Cutoff= 300) ng/mL U Marijuana (THC) Screen (Cutoff = 50) ng/mL Ethyl Alcohol < 10 (0-10) mg/dL Psychiatric Medical Clearance - Medical Clearance Checklist Medical History: No Social History Section defined Current Vitals: Last Vital Signs Temp 98.1 F 11/28/16 17:42 Pulse 118 11/28/16 17:42 Resp 16 11/28/16 17:42 BP 168/113 11/28/16 17:42 Pulse Ox 96 11/28/16 17:42 Psychiatric Lab Panel: Drug Levels and Toxicity 11/28/16 11/28/16 17:57 18:22 Urine Opiates Screen Positive H Acetaminophen 1.0 L Ur Barbiturates Screen Negative Ur Phencyclidine Scrn Negative Ur Amphetamines Screen Negative U Benzodiazepines Scrn Negative Urine Cocaine Screen Negative U Marijuana (THC) Screen Negative Ethyl Alcohol < 10 Abnormal Labs: Abnormal lab results Glucose 108 mg/dL (70-99) H 11/28/16 18:22 Salicylates < 5.0 mg/dL (15-30) L 11/28/16 18:22 Urine Opiates Screen Positive ng/mL (Cosfhz=015) H 11/28/16 17:57 Acetaminophen 1.0 mcg/mL (10-30) L 11/28/16 18:22 Statement of Medical Clearance: I have evaluated the patient, reviewed diagnostic information, and certify that the patient's medical condition is sufficiently stable that transfer to the psychiatric unit does not pose a significant risk of deterioration.
--- NOTE | 2016-11-28 17:56 | Emergency Department Note ---
Disposition Clinical Impression: Paranoia Disposition: Admitted As Inpatient Condition: Good Referrals: Tye Loving, PAC [Primary Care Provider] - Forms: ED Satisfaction Letter General Adult HPI - General Chief complaint: ED Psychiatric Symptoms Stated complaint: 1A eval Time Seen by Provider: 11/28/16 17:43 Source: patient Limitations: no limitations Nursing Notes Reviewed: Yes Vital Signs Reviewed: Yes - History of Present Illness Pain Scale: 6 - Related Data Home Medications Medication Instructions Recorded Confirmed Cyclobenzaprine [Flexeril] 10 mg PO TID PRN 05/25/15 11/25/16 Gabapentin [Neurontin] 800 mg PO TID 05/25/15 11/25/16 Omeprazole [PriLOSEC] 20 mg PO BIDAC 05/25/15 11/25/16 Sennosides [Senna] 8.6 mg PO QPM PRN 05/25/15 11/25/16 Docusate [Colace] 100 mg PO DAILY 11/25/16 11/25/16 HYDROcodone/Acet 7.5/325 mg [[place] 1 tab PO TID PRN 11/25/16 11/25/16 7.5-325 mg] Allergies Allergy/AdvReac Type Severity Reaction Status Date / Time No Known Allergies Allergy Verified 11/28/16 17:48 Past Medical History - Past Medical History Medical history: Reports: GERD Surgical history: Reports: cholecystectomy Psychiatric history: Reports: anxiety - Social History Smoking Status: Current every day smoker Smokeless Tobacco Status: No Alcohol use: Reports: none Drug use: Reports: none Physical Exam - General Limitations: no limitations General appearance: alert, in no apparent distress Course Vital Signs Temperature 98.1 F 11/28/16 17:42 Pulse Rate 118 11/28/16 17:42 Respiratory Rate 16 11/28/16 17:42 Blood Pressure 168/113 11/28/16 17:42 O2 Sat by Pulse Oximetry 96 11/28/16 17:42 Temperature 98.1 F 11/28/16 17:42 Pulse Rate 70 11/28/16 22:15 Respiratory Rate 12 11/28/16 22:15 Blood Pressure 176/97 11/28/16 22:15 O2 Sat by Pulse Oximetry 97 11/28/16 22:15 Oxygen Delivery Oxygen Delivery Room Air Medical Decision Making - MDM Narrative Medical decision making narrative: I examined this patient and my medical decision-making was reviewed with the Resident Physician. I agree with the documented findings, disposition and treatment plan as described except to the extent set forth below. Patient seen and evaluated by Dr. Frazier and myself, high-grade his evaluation and management plan, supervised care the patient's stay. Patient presents today with delusions. He thinks that his significant other her varicose veins in her legs or writings from someone. He states he is not homicidal or suicidal. He does think he is seeing things not certain if he is hearing voices or not he does think he needs C1-1. We will get labs and reassess. He has a history of paranoia but it is like his official diagnosis. 2200 hrs.: 1A has decided they will admit this patient for to the psychiatric unit. Patient's in agreement. He does have at [address] - Lab Data Result diagrams: 11/28/16 18:22 11/28/16 18:22 Lab Results 11/28/16 11/28/16 11/28/16 Range/Units 17:57 17:57 18:22 WBC 9.7 (4.3-11.1) K/mcL RBC 4.92 (4.19-5.50) M/mcL Hgb 14.8 (12.9-16.9) g/dL Hct 42.7 (37.5-50.1) % MCV 86.8 (83.0-100.0) fL MCH 30.1 (28.0-33.3) pg MCHC 34.7 (31.6-35.5) g/dL RDW 11.8 (11.5-14.5) % Plt Count 190 (140-400) K/mcL MPV 11.2 (9.4-12.4) fL Immature Gran % 0.2 (0-4) % Seg Neutrophils % 71.6 % Lymphocytes % 21.5 % Monocytes % 4.5 % Eosinophils % 1.3 % Basophils % 0.9 % Neutrophils # 6.9 (1.6-8.9) K/mcL Lymphocytes # 2.1 (0.6-4.6) K/mcL Monocytes # 0.4 (0.0-1.3) K/mcL Eosinophils # 0.1 (0.0-0.6) K/mcL Basophils # 0.1 (0.0-0.2) K/mcL Sodium (136-145) mEq/L Potassium (3.5-4.5) mEq/L Chloride (98-109) mEq/L Carbon Dioxide (19-29) mEq/L BUN (8-26) mg/dL Creatinine (0.72-1.25) mg/dL Est GFR ( Amer) (> 60) Est GFR (Non-Af Amer) (> 60) BUN/Creatinine Ratio (6-26) Glucose (70-99) mg/dL Calculated Osmolality (280-300) Calcium (8.6-10.8) mg/dL TSH (0.350-4.840) mcIU/mL Urine Color Yellow (Yellow) Urine Clarity Clear (Clear) Urine pH 7.0 (5.0-8.0) pH Units Ur Specific [place] 1.010 (1.010-1.025) Urine Protein Negative (Neg-Trace) mg/dL Urine Glucose (UA) Normal (Normal) mg/dL Urine Ketones Negative (Negative) mg/dL Urine Blood Negative (Negative) Urine Nitrite Negative (Negative) Urine Bilirubin Negative (Negative) Urine Urobilinogen Normal (Normal) mg/dL Ur Leukocyte Esterase Negative (Negative) Salicylates (15-30) mg/dL Urine Opiates Screen Positive H (Voelob=357) ng/mL Acetaminophen (10-30) mcg/mL Ur Barbiturates Screen Negative (Kmttbp=708) ng/mL Ur Phencyclidine Scrn Negative (Cutoff=25) ng/mL Ur Amphetamines Screen Negative (Zebxxg=2624) ng/mL U Benzodiazepines Scrn Negative (Riqhcq=724) ng/mL Urine Cocaine Screen Negative (Cutoff= 300) ng/mL U Marijuana (THC) Screen Negative (Cutoff = 50) ng/mL Ethyl Alcohol (0-10) mg/dL 11/28/16 Range/Units 18:22 WBC (4.3-11.1) K/mcL RBC (4.19-5.50) M/mcL Hgb (12.9-16.9) g/dL Hct (37.5-50.1) % MCV (83.0-100.0) fL MCH (28.0-33.3) pg MCHC (31.6-35.5) g/dL RDW (11.5-14.5) % Plt Count (140-400) K/mcL MPV (9.4-12.4) fL Immature Gran % (0-4) % Seg Neutrophils % % Lymphocytes % % Monocytes % % Eosinophils % % Basophils % % Neutrophils # (1.6-8.9) K/mcL Lymphocytes # (0.6-4.6) K/mcL Monocytes # (0.0-1.3) K/mcL Eosinophils # (0.0-0.6) K/mcL Basophils # (0.0-0.2) K/mcL Sodium 139 (136-145) mEq/L Potassium 3.9 (3.5-4.5) mEq/L Chloride 103 (98-109) mEq/L Carbon Dioxide 24 (19-29) mEq/L BUN 14 (8-26) mg/dL Creatinine 0.94 (0.72-1.25) mg/dL Est GFR ( Amer) > 60 (> 60) Est GFR (Non-Af Amer) > 60 (> 60) BUN/Creatinine Ratio 15 (6-26) Glucose 108 H (70-99) mg/dL Calculated Osmolality 289 (280-300) Calcium 10.1 (8.6-10.8) mg/dL TSH 0.733 (0.350-4.840) mcIU/mL Urine Color (Yellow) Urine Clarity (Clear) Urine pH (5.0-8.0) pH Units Ur Specific [place] (1.010-1.025) Urine Protein (Neg-Trace) mg/dL Urine Glucose (UA) (Normal) mg/dL Urine Ketones (Negative) mg/dL Urine Blood (Negative) Urine Nitrite (Negative) Urine Bilirubin (Negative) Urine Urobilinogen (Normal) mg/dL Ur Leukocyte Esterase (Negative) Salicylates < 5.0 L (15-30) mg/dL Urine Opiates Screen (Cpdikk=853) ng/mL Acetaminophen 1.0 L (10-30) mcg/mL Ur Barbiturates Screen (Qeyvmt=051) ng/mL Ur Phencyclidine Scrn (Cutoff=25) ng/mL Ur Amphetamines Screen (Xjuaca=9869) ng/mL U Benzodiazepines Scrn (Nvpont=053) ng/mL Urine Cocaine Screen (Cutoff= 300) ng/mL U Marijuana (THC) Screen (Cutoff = 50) ng/mL Ethyl Alcohol < 10 (0-10) mg/dL
[2016-11-28 18:10] LABS: Bilirubin,Urine Negative (Negative); Blood,Urine Negative (Negative); Clarity,Urine Clear (Clear); Color,Urine Yellow (Yellow); Glucose,Urine (UA) Normal (Normal); Ketones,Urine Negative (Negative); Leukocyte Esterase,Urine Negative (Negative); Nitrite,Urine Negative (Negative); Protein,Urine Negative (Neg-Trace); Urobilinogen,Urine Normal (Normal)
[2016-11-28 18:17] LABS: Amphetamine Screen,Urine Negative ng/mL (Cutoff=1000); Barbiturate Screen,Urine Negative ng/mL (Cutoff=200); Benzodiazepines Screen,Urine Negative ng/mL (Cutoff=200); Cannabinoid Screen,Urine Negative ng/mL (Cutoff = 50); Cocaine Screen,Urine Negative ng/mL (Cutoff= 300); Opiate Screen,Urine Positive ng/mL (Cutoff=300); Phencyclidine Screen,Urine Negative ng/mL (Cutoff=25)
[2016-11-28 18:29] LABS: Basophils # 0.1 K/mcL (0.0-0.2); Basophils % 0.9 %; Eosinophils # 0.1 K/mcL (0.0-0.6); Eosinophils % 1.3 %; Hematocrit 42.7 % (37.5-50.1); Hemoglobin 14.8 g/dL (12.9-16.9); Immature Granulocytes % 0.2 % (0-4); Lymphocytes # 2.1 K/mcL (0.6-4.6); Lymphocytes % 21.5 %; Mean Corpuscular HGB Conc 34.7 g/dL (31.6-35.5); Mean Corpuscular Hemoglobin 30.1 pg (28.0-33.3); Mean Corpuscular Volume 86.8 fL (83.0-100.0); Mean Platelet Volume 11.2 fL (9.4-12.4); Monocytes # 0.4 K/mcL (0.0-1.3); Monocytes % 4.5 %; Neutrophils # 6.9 K/mcL (1.6-8.9); Platelet Count 190 K/mcL (140-400); Red Blood Count 4.92 M/mcL (4.19-5.50); Red Cell Distribution Width 11.8 % (11.5-14.5); Segmented Neutrophils % 71.6 %
[2016-11-28 18:44] LABS: BUN/Creatinine Ratio 15 (6-26); Blood Urea Nitrogen 14 mg/dL (8-26); Calcium 10.1 mg/dL (8.6-10.8); Carbon Dioxide 24 mEq/L (19-29); Chloride 103 mEq/L (98-109); Glucose 108 mg/dL (70-99); Osmolality,Calculated 289 (280-300); Potassium 3.9 mEq/L (3.5-4.5); Sodium 139 mEq/L (136-145); eGFR For African Americans > 60 (> 60); eGFR For Non-African Americans > 60 (> 60)
[2016-11-28 18:47] LABS: Ethanol < 10 mg/dL (0-10); Salicylate < 5.0 mg/dL (15-30)
[2016-11-28 19:04] LABS: Thyroid Stimulating Hormone 0.733 mcIU/mL (0.350-4.840)
[2016-11-28] MEDS ORDERED: Ibuprofen 600 MG TABLET PO ONE (21:27)
[2016-11-28] MEDS ORDERED: Nicotine 14 MG PATCH.TD24 TD ONE (22:23)
[2016-11-28] MEDS ORDERED: Haloperidol Lactate 5 MG/ML VIAL IM PRN (23:29)
[2016-11-28] MEDS ORDERED: Acetaminophen 325 MG TABLET PO PRN (23:29)
[2016-11-28] MEDS ORDERED: hydrOXYzine pamoate 25 MG CAPSULE PO PRN (23:29)
[2016-11-28] MEDS ORDERED: traZODone 50 MG TABLET PO PRN (23:29)
[2016-11-28] MEDS ORDERED: *HR* LORazepam 2 MG/ML VIAL IM PRN (23:29)
[2016-11-28] MEDS ORDERED: MOM Conc 10 ML UD.LIQ PO PRN (23:29)
[2016-11-28] MEDS ORDERED: *HR* LORazepam 1 MG TABLET PO PRN (23:29)
[2016-11-28] MEDS ORDERED: Mag Hydrox/Al Hydrox/Simeth 30 ML UDC PO PRN (23:29)
[2016-11-28] MEDS ORDERED: Sennosides 8.6 MG TABLET PO PRN (23:32)
[2016-11-29] MEDS ORDERED: Nicotine 21 MG PATCH.TD24 TD SCH (09:00)
[2016-11-29] MEDS ORDERED: Gabapentin 400 MG CAPSULE PO SCH (09:00)
--- NOTE | 2016-11-29 09:48 | Psychiatry History & Physical ---
Date of Encounter: 11/29/16 Time of Encounter: 09:47 History of Present Illness Medicare Admission Attestation: For traditional Medicare patients the provided hospital inpatient services are reasonable and necessary and in the case of services not specified as inpatient -only under 42 CFR 419.22 (n), that they are appropriately provided as inpatient services in accordance 42 CFR 412.3. For Critical Access Hospital the patient may reasonably be expected to be discharged or transferred to a hospital within 96 hours after admission to the Critical Access Hospital. Admitted From: Emergency Dept Plans for Post Hospital Care: Home History of Present Illness: Mr. Bowers is a 46 year old male presented to the ER due to paranoia and delusions. Patient was accompanied by his girlfriend. She stated that over the last 2 weeks that he has seemed to become more paranoid and delusional. She reports in the last year they have lost several members of their families. She states that he believes that the varicose veins on her leg are from her boyfriends writing on her leg. He also reports having delusions but is unable to explain exactly what that means. He denies suicidal or homicidal ideation. He denies auditory hallucinations. Pt reports that he is not feeling suicidal or homicidal he reports just having some relationship issues patient actively denies that he is having any issues with any type of paranoia and regard to returning to his house he said he has no issues with returning back to his house patient reports that he is looking into getting treatment services for him and his girlfriend. Patient reports that he does not have any recent history of anxiety or depression that he reports 5-6 years ago he did report that he is not required medication since then patient denies any past suicide attempts patient denies any past inpatient psychiatric hospitalization patient denies any recent or past suicidal thoughts or self-harm behaviors. 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 Past Med Surg Social Fam HX - Past Medical History Medical history: GERD - Past Surgical History Surgical History: cholecystectomy - Social History Smoking Status: Current every day smoker Smokeless Tobacco Status: No Alcohol use: none Drug use: none - Family History Father Adopted: [place]: Bala Bowers Sr Age: 72 Family Member Ethnicity: Non- Living Status: Age at : 72 Hx Family Cardiac Disorders: Yes Hx Family Respiratory Disorders: Yes Hx Family Musculoskeletal Disorders: Yes Medications & Allergies Cyclobenzaprine [Flexeril] 10 mg PO TID PRN 05/25/15 [History] Gabapentin [Neurontin] 800 mg PO TID 05/25/15 [History] Omeprazole [PriLOSEC] 20 mg PO BIDAC 05/25/15 [History] Sennosides [Senna] 8.6 mg PO QPM PRN 05/25/15 [History] Docusate [Colace] 100 mg PO DAILY 11/25/16 [History] Naproxen Sodium [Aleve] 220 mg PO Q12H PRN 11/28/16 [History] 3 Allergy/AdvReac Type Severity Reaction Status Date / Time No Known Allergies Allergy Verified 11/28/16 17:48 Mental Status Exam Patient orientation: Yes Person, Yes Time, Yes Place Level of alertness: Alert Patient appearance: Appropriate Behavior: anxious Psychomotor activity: Normal Eye contact: Maintains Eye Contact Mood description: Anxious Affect description: congruent with mood Speech volume: Normal Thought process: Intact Thought content: Yes Intact, Yes Paranoid delusion Attention span: Capable of Focused Attention, Capable of Sustained Attention Memory description: Grossly Intact, Immediate Intact Patient reliability: Reliable Historian Intelligence estimate: Average Judgment: Fair Insight: Partial Exam - HEENT Head exam IM: Present: normal inspection Eye exam IM: Present: EOMI - Neurological Neurological exam IM: Present: CN II-XII intact Results - Vital Signs Vital signs: Temp Pulse Resp BP Pulse Ox 96.6 F L 61 16 160/105 97 11/28/16 23:35 11/28/16 23:35 11/28/16 23:35 11/28/16 23:35 11/28/16 22:15 - Labs Labs: Laboratory Last Values WBC 9.7 K/mcL (4.3-11.1) 11/28/16 18:22 RBC 4.92 M/mcL (4.19-5.50) 11/28/16 18:22 Hgb 14.8 g/dL (12.9-16.9) 11/28/16 18:22 Hct 42.7 % (37.5-50.1) 11/28/16 18:22 MCV 86.8 fL (83.0-100.0) 11/28/16 18:22 MCH 30.1 pg (28.0-33.3) 11/28/16 18:22 MCHC 34.7 g/dL (31.6-35.5) 11/28/16 18:22 RDW 11.8 % (11.5-14.5) 11/28/16 18:22 Plt Count 190 K/mcL (140-400) 11/28/16 18:22 MPV 11.2 fL (9.4-12.4) 11/28/16 18:22 Immature Gran % 0.2 % (0-4) 11/28/16 18:22 Seg Neutrophils % 71.6 % 11/28/16 18:22 Lymphocytes % 21.5 % 11/28/16 18:22 Monocytes % 4.5 % 11/28/16 18:22 Eosinophils % 1.3 % 11/28/16 18:22 Basophils % 0.9 % 11/28/16 18:22 Neutrophils # 6.9 K/mcL (1.6-8.9) 11/28/16 18:22 Lymphocytes # 2.1 K/mcL (0.6-4.6) 11/28/16 18:22 Monocytes # 0.4 K/mcL (0.0-1.3) 11/28/16 18:22 Eosinophils # 0.1 K/mcL (0.0-0.6) 11/28/16 18:22 Basophils # 0.1 K/mcL (0.0-0.2) 11/28/16 18:22 Sodium 139 mEq/L (136-145) 11/28/16 18:22 Potassium 3.9 mEq/L (3.5-4.5) 11/28/16 18:22 Chloride 103 mEq/L (98-109) 11/28/16 18:22 Carbon Dioxide 24 mEq/L (19-29) 11/28/16 18:22 BUN 14 mg/dL (8-26) 11/28/16 18:22 Creatinine 0.94 mg/dL (0.72-1.25) 11/28/16 18:22 Est GFR ( Amer) > 60 (> 60) 11/28/16 18:22 Est GFR (Non-Af Amer) > 60 (> 60) 11/28/16 18:22 BUN/Creatinine Ratio 15 (6-26) 11/28/16 18:22 Glucose 108 mg/dL (70-99) H 11/28/16 18:22 Calculated Osmolality 289 (280-300) 11/28/16 18:22 Calcium 10.1 mg/dL (8.6-10.8) 11/28/16 18:22 TSH 0.733 mcIU/mL (0.350-4.840) 11/28/16 18:22 Urine Color Yellow (Yellow) 11/28/16 17:57 Urine Clarity Clear (Clear) 11/28/16 17:57 Urine pH 7.0 pH Units (5.0-8.0) 11/28/16 17:57 Ur Specific [place] 1.010 (1.010-1.025) 11/28/16 17:57 Urine Protein Negative mg/dL (Neg-Trace) 11/28/16 17:57 Urine Glucose (UA) Normal mg/dL (Normal) 11/28/16 17:57 Urine Ketones Negative mg/dL (Negative) 11/28/16 17:57 Urine Blood Negative (Negative) 11/28/16 17:57 Urine Nitrite Negative (Negative) 11/28/16 17:57 Urine Bilirubin Negative (Negative) 11/28/16 17:57 Urine Urobilinogen Normal mg/dL (Normal) 11/28/16 17:57 Ur Leukocyte Esterase Negative (Negative) 11/28/16 17:57 Salicylates < 5.0 mg/dL (15-30) L 11/28/16 18:22 Urine Opiates Screen Positive ng/mL (Uncoyl=608) H 11/28/16 17:57 Acetaminophen 1.0 mcg/mL (10-30) L 11/28/16 18:22 Ur Barbiturates Screen Negative ng/mL (Ltdoev=989) 11/28/16 17:57 Ur Phencyclidine Scrn Negative ng/mL (Cutoff=25) 11/28/16 17:57 Ur Amphetamines Screen Negative ng/mL (Fpnzkq=8365) 11/28/16 17:57 U Benzodiazepines Scrn Negative ng/mL (Bnimpg=977) 11/28/16 17:57 Urine Cocaine Screen Negative ng/mL (Cutoff= 300) 11/28/16 17:57 U Marijuana (THC) Screen Negative ng/mL (Cutoff = 50) 11/28/16 17:57 Ethyl Alcohol < 10 mg/dL (0-10) 11/28/16 18:22 Assessment and Plan (1) Anxiety Current visit: Yes Status: Acute Plan: Admit inpatient for safety and stabilization, Encourage participation in unit milieu, Group Therapy, Monitor sleep, Monitor appetite
--- NOTE | 2016-11-29 10:05 | Discharge Summary ---
Date of Encounter: 11/29/16 Time of Encounter: 10:02 Diagnosis - Discharge Diagnosis (1) Anxiety Priority: Primary Status: Acute Medications - Discharge Medications Cyclobenzaprine [Flexeril] 10 mg PO TID PRN 05/25/15 [History] Gabapentin [Neurontin] 800 mg PO TID 05/25/15 [History] Sennosides [Senna] 8.6 mg PO QPM PRN 05/25/15 [History] 3 Allergy/AdvReac Type Severity Reaction Status Date / Time No Known Allergies Allergy Verified 11/28/16 17:48 Provider Date of admission: 11/28/16 23:00 Primary care physician: PCP NONE Discharging clinician: Breezy Rondon Assessment and Plan - Patient/Caregiver Discharge Instructions Activity: resume usual activities as tolerated Diet: regular diet - Follow up Plan Follow up with: NONE,PCP [Primary Care Provider] - Overall status at discharge: Stable Disposition: Home, Self-Care Hospital Course Hospital course: Mr. Bowers is a 46 year old male was admitted for anxiety and paranoia secondary to relationship issues with his girlfriend. Patient was admitted to the inpatient psychiatric unit for safety and stabilization once patient was admitted patient was very calm and cooperative and patient reports no paranoia in regards to going back into his house patient was not started on any new medication patient was discharged after social psychologist did speak with patient's girlfriend no other issues reported patient was medication compliant patient denied suicide or homicide ideations. Time spent discussing smoking cessation with patient: 3 to 10 minutes Does patient wish to continue nicotine replacement upon disc: No - Time Spent with Patient Total time spent providing and/or coordinating discharge services: Less than 30 minutes Quality - Multiple Antipsychotics Patient discharged on 2 or more antipsychotic medications: No Procedures - Procedures Procedures: Medication Management, Crisis Stabilization, Supportive Therapy, Group Therapy, Psychoeducational Therapy Mental Status Exam - Mental Status Exam Patient orientation: Yes Person, Yes Time, Yes Place Level of alertness: Alert Patient appearance: Appropriate Behavior: calm, cooperative Psychomotor activity: Normal Eye contact: Maintains Eye Contact Mood description: Euthymic/stable Affect description: congruent with mood Speech pattern: Normal rate, Normal rhythm, Normal tone Speech Volume: Normal Thought process: Intact Thought Content: Yes Intact Judgment: Fair Insight: Partial
[2016-11-29 10:43] VITALS: BP 110/81
== END 2016-11-29 11:15 | disposition home or self-care (01) ==
LOC: 1ANU 17:31 → EMEROO 17:31 → 1ANU 23:09
PROVIDERS: ADMIT Psychiatry & Neurology Psychiatry; ATTEND Psychiatry & Neurology Psychiatry

== ENCOUNTER 2019-11-24 15:16 | Observation (INO) ==
[2019-11-24] MEDS ORDERED: Ondansetron ODT 4 MG TAB.RAPDIS SL ONE (15:33)
[2019-11-24 16:23] LABS: Alanine Aminotransferase 41 Units/L (7-52); Albumin 4.6 g/dL (3.5-5.7); Albumin/Globulin Ratio 1.3 (1.1-2.2); Alkaline Phosphatase 67 Units/L (34-104); Aspartate Amino Transferase 35 Units/L (13-39); BUN/Creatinine Ratio 22 (6-26); Bilirubin,Direct 0.1 mg/dL (0.0-0.2); Bilirubin,Indirect 0.4 mg/dL (0.0-1.0); Bilirubin,Total 0.5 mg/dL (0.3-1.0); Blood Urea Nitrogen 19 mg/dL (6-20); Calcium 9.6 mg/dL (8.6-10.3); Carbon Dioxide 28 mEq/L (23-29); Chloride 104 mEq/L (98-107); Globulin 3.5 g/dL (2.4-3.5); Glucose 91 mg/dL (70-105); Osmolality,Calculated 288 (280-300); Potassium 3.9 mEq/L (3.5-5.1); Sodium 138 mEq/L (136-145); Total Protein 8.1 g/dL (6.4-8.9); Troponin I < 0.03 ng/mL (< 0.04); eGFR For African Americans > 60 (> 60); eGFR For Non-African Americans > 60 (> 60)
[2019-11-24 16:26] LABS: Basophils # 0.1 K/mcL (0.0-0.2); Basophils % 1.2 %; Eosinophils # 0.1 K/mcL (0.0-0.6); Eosinophils % 1.8 %; Hematocrit 43.9 % (37.5-50.1); Hemoglobin 14.9 g/dL (12.9-16.9); Immature Granulocytes % 0.1 % (0-4); Lymphocytes # 2.6 K/mcL (0.6-4.6); Mean Corpuscular HGB Conc 33.9 g/dL (31.6-35.5); Mean Corpuscular Hemoglobin 30.2 pg (28.0-33.3); Mean Corpuscular Volume 88.9 fL (83.0-100.0); Mean Platelet Volume 11.2 fL (9.4-12.4); Monocytes # 0.6 K/mcL (0.0-1.3); Monocytes % 7.2 %; Neutrophils # 4.3 K/mcL (1.6-8.9); Platelet Count 215 K/mcL (140-400); Red Blood Count 4.94 M/mcL (4.19-5.50); Red Cell Distribution Width 12.6 % (11.5-14.5); Segmented Neutrophils % 55.7 %; White Blood Count 7.7 K/mcL (4.3-11.1)
[2019-11-24] MEDS ORDERED: Dicyclomine 20 MG/2 ML AMPUL IM STA (16:31)
[2019-11-24] MEDS ORDERED: GI Cocktail 40 ML EACH PO ONE (18:13)
[2019-11-24] MEDS ORDERED: Aspirin 81 MG TAB.CHEW PO ONE (18:15)
[2019-11-24] MEDS ORDERED: Naloxone 0.4 MG/ML INJ IVP PRN (20:42)
[2019-11-24] MEDS ORDERED: Ondansetron 4 MG/2 ML VIAL IVP PRN (20:42)
[2019-11-25 03:59] LABS: BUN/Creatinine Ratio 19 (6-26); Blood Urea Nitrogen 18 mg/dL (6-20); Calcium 9.3 mg/dL (8.6-10.3); Carbon Dioxide 32 mEq/L (23-29); Chloride 103 mEq/L (98-107); Glucose 116 mg/dL (70-105); Magnesium 2.4 mg/dL (1.6-2.6); Osmolality,Calculated 291 (280-300); Potassium 3.6 mEq/L (3.5-5.1); Sodium 139 mEq/L (136-145); eGFR For African Americans > 60 (> 60); eGFR For Non-African Americans > 60 (> 60)
[2019-11-25 04:00] LABS: Troponin I < 0.03 ng/mL (< 0.04)
[2019-11-25] MEDS: *HR* Heparin 5,000 UNIT/ML VIAL SQ SCH ×2 (05:34→18:04)
[2019-11-25] MEDS: Ibuprofen 600 MG TABLET PO PRN ×2 (05:39→22:15)
[2019-11-25] MEDS ORDERED: Nitroglycerin 0.4 MG TAB.SUBL SL PRN (10:34)
[2019-11-25] MEDS ORDERED: Ringers Solution, Lactated 1,000 ML IVC SCH (10:45)
[2019-11-25 12:33] LABS: Amphetamine Screen,Urine Negative ng/mL (Cutoff=1000); Barbiturate Screen,Urine Negative ng/mL (Cutoff=200); Benzodiazepines Screen,Urine Negative ng/mL (Cutoff=200); Cannabinoid Screen,Urine Negative ng/mL (Cutoff = 50); Cocaine Screen,Urine Negative ng/mL (Cutoff= 300); Opiate Screen,Urine Negative ng/mL (Cutoff=300); Phencyclidine Screen,Urine Negative ng/mL (Cutoff=25)
[2019-11-25] MEDS: *HR* Buprenorphine HCl 8 MG TAB.SUBL SL SCH (13:12)
[2019-11-25] MEDS: Acetaminophen 325 MG TABLET PO PRN (13:12)
[2019-11-25] MEDS: Famotidine 20 MG TABLET PO SCH (13:12)
[2019-11-25] MEDS: BuPROPion XL (24 HR) 150 MG TABLET PO SCH (13:12)
[2019-11-25] MEDS: Nicotine 14 MG PATCH.TD24 TD SCH (18:03)
[2019-11-26] MEDS: Acetaminophen 325 MG TABLET PO PRN (01:21)
[2019-11-26 02:16] LABS: BUN/Creatinine Ratio 23 (6-26); Blood Urea Nitrogen 19 mg/dL (6-20); Calcium 9.4 mg/dL (8.6-10.3); Carbon Dioxide 26 mEq/L (23-29); Chloride 105 mEq/L (98-107); Glucose 106 mg/dL (70-105); Osmolality,Calculated 291 (280-300); Phosphorous 4.2 mg/dL (2.7-4.5); Potassium 3.9 mEq/L (3.5-5.1); Sodium 139 mEq/L (136-145); eGFR For African Americans > 60 (> 60); eGFR For Non-African Americans > 60 (> 60)
[2019-11-26] MEDS: *HR* Heparin 5,000 UNIT/ML VIAL SQ SCH (05:37)
[2019-11-26 07:01] VITALS: BP 106/69
[2019-11-26] MEDS ORDERED: Lactulose Oral Soln 20 GM/30 ML UDC PO SCH (09:00)
[2019-11-26] MEDS ORDERED: Aspirin Enteric Coated 81 MG Tablet PO SCH (09:00)
[2019-11-26] MEDS ORDERED: Multivit/Ca/Min/Fe/FA 1 TAB TABLET PO SCH (09:00)
[2019-11-26] MEDS: Famotidine 20 MG TABLET PO SCH (09:28)
[2019-11-26] MEDS: Nicotine 14 MG PATCH.TD24 TD SCH (09:29)
[2019-11-26] MEDS: BuPROPion XL (24 HR) 150 MG TABLET PO SCH (09:29)
[2019-11-26] MEDS: *HR* Buprenorphine HCl 8 MG TAB.SUBL SL SCH (09:31)
== END 2019-11-26 12:56 | disposition home or self-care (01) ==
LOC: EMEROOARM 15:16 → 3BNU 15:16 → SUATTDRO 18:56 → 2NENU 19:06 → 3ANU 11-25 19:58
PROVIDERS: ADMIT Internal Medicine; ATTEND Internal Medicine

== ENCOUNTER 2020-10-30 13:37 | Observation (INO) ==
[2020-10-30] MEDS ORDERED: Aspirin 325 MG TABLET PO ONE (14:43)
[2020-10-30 14:55] LABS: Basophils # 0.1 K/mcL (0.0-0.2); Basophils % 0.9 %; Eosinophils # 0.2 K/mcL (0.0-0.6); Eosinophils % 2.5 %; Hematocrit 41.9 % (37.5-50.1); Hemoglobin 14.6 g/dL (12.9-16.9); Immature Granulocytes % 0.4 % (0-4); Lymphocytes % 23.6 %; Mean Corpuscular HGB Conc 34.8 g/dL (31.6-35.5); Mean Corpuscular Hemoglobin 30.9 pg (28.0-33.3); Mean Corpuscular Volume 88.8 fL (83.0-100.0); Mean Platelet Volume 11.4 fL (9.4-12.4); Monocytes # 0.6 K/mcL (0.0-1.3); Monocytes % 7.4 %; Neutrophils # 5.6 K/mcL (1.6-8.9); Platelet Count 196 K/mcL (140-400); Red Blood Count 4.72 M/mcL (4.19-5.50); Segmented Neutrophils % 65.2 %; White Blood Count 8.5 K/mcL (4.3-11.1)
[2020-10-30] MEDS: Nitroglycerin 0.4 MG TAB.SUBL SL PRN ×2 (15:02→15:13)
[2020-10-30] MEDS ORDERED: GI Cocktail 40 ML EACH PO ONE (15:39)
[2020-10-30 15:45] LABS: Alanine Aminotransferase 26 Units/L (7-52); Albumin 4.3 g/dL (3.5-5.7); Albumin/Globulin Ratio 1.3 (1.1-2.2); Alkaline Phosphatase 83 Units/L (34-104); Aspartate Amino Transferase 35 Units/L (13-39); BUN/Creatinine Ratio 22 (6-26); Bilirubin,Direct 0.2 mg/dL (0.0-0.2); Bilirubin,Indirect 0.6 mg/dL (0.0-1.0); Bilirubin,Total 0.8 mg/dL (0.3-1.0); Blood Urea Nitrogen 20 mg/dL (6-20); Calcium 9.4 mg/dL (8.6-10.3); Carbon Dioxide 28 mEq/L (23-29); Chloride 102 mEq/L (98-107); Globulin 3.3 g/dL (2.4-3.5); Glucose 98 mg/dL (70-105); Lipase 12 Units/L (11-82); Osmolality,Calculated 291 (280-300); Potassium 3.7 mEq/L (3.5-5.1); Sodium 139 mEq/L (136-145); Total Protein 7.6 g/dL (6.4-8.9); eGFR For African Americans > 60 (> 60); eGFR For Non-African Americans > 60 (> 60)
[2020-10-30] MEDS ORDERED: Ondansetron ODT 4 MG TAB.RAPDIS SL PRN (17:21)
[2020-10-30] MEDS ORDERED: Naloxone 0.4 MG/ML INJ IVP PRN (17:21)
[2020-10-30] MEDS ORDERED: MOM Conc 10 ML UD.LIQ PO PRN (17:21)
[2020-10-30] MEDS ORDERED: Melatonin 3 MG TABLET PO PRN (17:21)
[2020-10-30] MEDS ORDERED: *HR* Heparin 5,000 UNIT/ML VIAL IVP PRN ×2 (17:25)
[2020-10-30] MEDS ORDERED: Perflutren Lipid Microsphere 1.3 ML in 0.9 % Sodium Chloride 8.7 ML IVP PRN (17:25)
[2020-10-30] MEDS ORDERED: *HR* Heparin 5,000 UNIT/ML VIAL IVP ONE (17:25)
[2020-10-30] MEDS ORDERED: Heparin 25,000UNIT/250ML 1/2NS 25,000 UNIT/250 ML IV.SOLN IVC SCH (17:30)
[2020-10-30 19:02] LABS: Hematocrit 40.5 % (37.5-50.1); Hemoglobin 14.1 g/dL (12.9-16.9); Mean Corpuscular HGB Conc 34.8 g/dL (31.6-35.5); Mean Platelet Volume 11.5 fL (9.4-12.4); Platelet Count 184 K/mcL (140-400); Red Blood Count 4.55 M/mcL (4.19-5.50); Red Cell Distribution Width 13.1 % (11.5-14.5); White Blood Count 7.8 K/mcL (4.3-11.1)
[2020-10-30 19:12] LABS: Heparin anti-factor XA UFH < 0.04 IU/mL (0.30-0.70)
[2020-10-30 19:13] LABS: INR 1.1; Prothrombin Time 12.9 Seconds (9.4-12.1)
[2020-10-30] MEDS: Pantoprazole 40 MG VIAL IVP SCH (22:55)
[2020-10-31 03:32] LABS: Mean Corpuscular HGB Conc 34.2 g/dL (31.6-35.5); Mean Corpuscular Hemoglobin 30.7 pg (28.0-33.3); Mean Corpuscular Volume 89.6 fL (83.0-100.0); Mean Platelet Volume 11.6 fL (9.4-12.4); Platelet Count 170 K/mcL (140-400); Red Blood Count 4.24 M/mcL (4.19-5.50); Red Cell Distribution Width 13.1 % (11.5-14.5); White Blood Count 7.1 K/mcL (4.3-11.1)
[2020-10-31 03:52] LABS: Alanine Aminotransferase 23 Units/L (7-52); Albumin 3.7 g/dL (3.5-5.7); Albumin/Globulin Ratio 1.4 (1.1-2.2); Alkaline Phosphatase 76 Units/L (34-104); Aspartate Amino Transferase 27 Units/L (13-39); BUN/Creatinine Ratio 22 (6-26); Bilirubin,Total 0.4 mg/dL (0.3-1.0); Blood Urea Nitrogen 22 mg/dL (6-20); Calcium 8.8 mg/dL (8.6-10.3); Carbon Dioxide 29 mEq/L (23-29); Chloride 103 mEq/L (98-107); Chol/HDL Ratio 4.1 (0-4.9); Cholesterol 142 mg/dL (< 200); Globulin 2.7 g/dL (2.4-3.5); Glucose 104 mg/dL (70-105); HDL Cholesterol 35 mg/dL (40-59); LDL Cholesterol,Calculated 57 mg/dL (< 100); Osmolality,Calculated 294 (280-300); Sodium 140 mEq/L (136-145); Total Protein 6.4 g/dL (6.4-8.9); Triglycerides 249 mg/dL (< 150); eGFR For African Americans > 60 (> 60); eGFR For Non-African Americans > 60 (> 60)
[2020-10-31] MEDS: Pantoprazole 40 MG VIAL IVP SCH ×2 (05:23→17:16)
[2020-10-31 08:52] LABS: Troponin I < 0.03 ng/mL (< 0.04)
[2020-10-31] MEDS: Aspirin 81 MG TAB.CHEW PO SCH (09:53)
[2020-10-31] MEDS: *HR* Buprenorphine HCl 8 MG TAB.SUBL SL SCH (09:54)
[2020-10-31] MEDS ORDERED: polyethylene glycoL 3350 17 GM POWD.PACK PO PRN (11:37)
[2020-10-31] MEDS: Finasteride 5 MG TABLET PO SCH (13:14)
[2020-10-31] MEDS: BuPROPion XL (24 HR) 150 MG TABLET PO SCH ×2 (13:14→17:16)
[2020-10-31] MEDS: hydroCHLOROthiazide 25 MG TABLET PO SCH ×2 (13:14→13:15)
[2020-11-01 02:08] LABS: BUN/Creatinine Ratio 21 (6-26); Blood Urea Nitrogen 19 mg/dL (6-20); Calcium 9.3 mg/dL (8.6-10.3); Carbon Dioxide 28 mEq/L (23-29); Chloride 104 mEq/L (98-107); Glucose 102 mg/dL (70-105); Osmolality,Calculated 292 (280-300); Potassium 3.6 mEq/L (3.5-5.1); Sodium 140 mEq/L (136-145); eGFR For African Americans > 60 (> 60); eGFR For Non-African Americans > 60 (> 60)
[2020-11-01] MEDS: Finasteride 5 MG TABLET PO SCH (07:31)
[2020-11-01] MEDS: Aspirin 81 MG TAB.CHEW PO SCH (07:31)
[2020-11-01] MEDS: Pantoprazole 40 MG VIAL IVP SCH (07:31)
[2020-11-01] MEDS: *HR* Buprenorphine HCl 8 MG TAB.SUBL SL SCH (07:32)
[2020-11-01] MEDS: hydroCHLOROthiazide 25 MG TABLET PO SCH (07:32)
[2020-11-01] MEDS: BuPROPion XL (24 HR) 150 MG TABLET PO SCH ×2 (07:32→14:13)
[2020-11-01] MEDS ORDERED: *HR* Propofol 200 MG/20 ML VIAL IVP ONE ×2 (10:39→11:05)
[2020-11-01] MEDS ORDERED: Lidocaine -MPF 2% 5 ML VIAL ONE (11:07)
[2020-11-01] MEDS: Mag Hydrox/Al Hydrox/Simeth 30 ML UDC PO PRN (20:26)
[2020-11-01] MEDS ORDERED: Famotidine 20 MG TABLET PO SCH (21:00)
[2020-11-02] MEDS: *HR* Buprenorphine HCl 8 MG TAB.SUBL SL SCH (08:27)
[2020-11-02] MEDS: Aspirin 81 MG TAB.CHEW PO SCH (08:27)
[2020-11-02] MEDS: Finasteride 5 MG TABLET PO SCH (08:27)
[2020-11-02] MEDS: BuPROPion XL (24 HR) 150 MG TABLET PO SCH ×2 (08:27→12:06)
[2020-11-02] MEDS: hydroCHLOROthiazide 25 MG TABLET PO SCH (08:27)
[2020-11-02] MEDS ORDERED: Pantoprazole 40 MG VIAL IVP SCH (09:00)
[2020-11-02 11:32] VITALS: BP 130/82; PULSE 63; TEMP 98.1; O2SAT 98
[2020-11-02] MEDS ORDERED: Acetaminophen 325 MG TABLET PO PRN (11:43)
[2020-11-02] MEDS: Mag Hydrox/Al Hydrox/Simeth 30 ML UDC PO PRN (12:05)
== END 2020-11-02 16:28 | disposition home or self-care (01) ==
LOC: 3BNU 13:37 → EMEROOARM 13:37 → SUATTDRO 18:32 → 3BNU 19:57
PROVIDERS: ADMIT Internal Medicine; ATTEND Registered Nurse
PROC: ENDOEBX (2020-11-01 14:20)